=== PATIENT | male | born 1990 | race Caucasian/White ===

== ENCOUNTER → 2022-03-21 | Outpatient (CLI) | payer OTHER | LOC: KOH-I 13:07 | DX: M25.571 Pain in right ankle and joints of right foot (principal) | CPT/HCPCS: 73610; 73630 ==

== ENCOUNTER → 2022-03-26 | Outpatient (CLI) | payer OTHER | LOC: EMI 08:27 | DX: S86.011A Strain of right Achilles tendon, initial encounter (principal) | CPT/HCPCS: 73721 ==